=== PATIENT | female | born 1985 | race Caucasian/White ===

== ENCOUNTER 2017-02-07 11:48 | Emergency (ER) | payer BC, OTHER ==
--- NOTE | 2017-02-07 12:13 | EDPHY ---
HPI/HX/ROS/PE/MDM Narrative: CHIEF COMPLAINT: Vomiting, positive home test HPI: The patient is a 31 y/o female complaining of worsening vomiting since , 3 days ago. She took several home tests that were positive. She reports she is vomiting every hour and has difficulty keeping fluids down. She denies associated abdominal pain, fever, or diarrhea. She estimates her last menstrual period was around the beginning of January or end of December. She is otherwise healthy. REVIEW OF SYSTEMS: Aside from elements discussed in the HPI, a comprehensive 10-point review of systems was reviewed and is negative. PMH: SOCIAL HISTORY: Lives in [place]. Employed. In a relationship. PHYSICAL EXAM: General:Patient is alert, in no acute distress. ENT:Eyes are normal to inspection. ENT inspection normal. Neck: Normal inspection. Full range of motion. Respiratory:No respiratory distress. Breath sounds normal bilaterally. Cardiovascular: Regular rate and rhythm. Strong peripheral pulses. Normal cap refill. Abdomen:The abdomen is nontender to palpation. There are no peritoneal signs. There are normal bowel sounds. Back: Normal to inspection. No tenderness to palpation. Skin: Normal color. No rash. Warm and dry. Extremities: Normal appearance. Full range of motion. Neuro: Oriented x3. Normal motor function. Normal sensory function. ED Course: This is a healthy 31 y/o female who presents with a 3-day history of persistent vomiting and positive home tests. Her exam is unremarkable and her abdomen is benign. Plan for basic labs including CBC, CHEM, BHCG, and blood typing. 1L IV NS administered. Patient's BHCG is elevated consistent with early . She will be discharged with a script for Diclegis and referral to OBGYN for follow up. She is comfortable with this plan. Return precautions given. MDM: This patient presents with vomiting in the setting of positive test. She has no abdominal pain to suggest OB problem and has not yet been evaluated by an salesman/owner. I see no sign of ectopic, preeclampsia or infection. The patient is comfortable with the plan to follow-up as an outpatient. I do not think emergent imaging is indicated. - Data Points Laboratory Results: Laboratory Results 02/07/17 12:10 02/07/17 12:10 02/07/17 02/07/17 02/07/17 12:24 12:10 12:10 WBC 10.25 10^3/uL H 10^3/uL (3.80-9.50) RBC 4.80 10^6/uL 10^6/uL (4.18-5.33) Hgb 14.2 g/dL g/dL (12.6-16.3) Hct 41.5 % % (38.0-47.0) MCV 86.5 fL fL (81.5-99.8) MCH 29.6 pg pg (27.9-34.1) MCHC 34.2 g/dL g/dL (32.4-36.7) RDW 12.7 % % (11.5-15.2) Plt Count 439 10^3/uL H 10^3/uL (150-400) MPV 9.3 fL fL (8.7-11.7) Neut % (Auto) 65.7 % % (39.3-74.2) Lymph % (Auto) 27.0 % % (15.0-45.0) Gordon % (Auto) 4.6 % % (4.5-13.0) Eos % (Auto) 1.9 % % (0.6-7.6) Baso % (Auto) 0.5 % % (0.3-1.7) Nucleat RBC Rel Count 0.0 % % (0.0-0.2) Absolute Neuts (auto) 6.74 10^3/uL H 10^3/uL (1.70-6.50) Absolute Lymphs (auto) 2.77 10^3/uL 10^3/uL (1.00-3.00) Absolute Monos (auto) 0.47 10^3/uL 10^3/uL (0.30-0.80) Absolute Eos (auto) 0.19 10^3/uL 10^3/uL (0.03-0.40) Absolute Basos (auto) 0.05 10^3/uL 10^3/uL (0.02-0.10) Absolute Nucleated RBC 0.00 10^3/uL 10^3/uL (0-0.01) Immature Gran % 0.3 % % (0.0-1.1) Immature Gran # 0.03 10^3/uL 10^3/uL (0.00-0.10) Sodium 140 mEq/L mEq/L (134-144) Potassium 4.2 mEq/L mEq/L (3.5-5.2) Chloride 105 mEq/L mEq/L (97-110) Carbon Dioxide 20 mEq/l L mEq/l (22-31) Anion Gap 15 mEq/L mEq/L (8-16) BUN 7 mg/dL mg/dL (7-23) Creatinine 0.6 mg/dL mg/dL (0.6-1.0) Estimated GFR > 60 Glucose 95 mg/dL mg/dL (70-100) Calcium 9.9 mg/dL mg/dL (8.5-10.4) Beta HCG, Quant 51663.00 mIU/mL H mIU/mL (0-4.83) Patient ABO/Rh A POSITIVE Medications Given: Discontinued Medications Sodium Chloride (Ns) 1,000 mls @ 0 mls/hr IV ONCE ONE PRN Reason: Wide Open Stop: 02/07/17 12:22 Last Admin: 02/07/17 12:29 Dose: 1,000 mls General Time Seen by Provider: 02/07/17 12:01 Initial Vital Signs: Initial Vital Signs Temperature (C) 36.5 C 02/07/17 11:58 Heart Rate 102 H 02/07/17 11:58 Respiratory Rate 20 02/07/17 11:58 Blood Pressure 144/86 H 02/07/17 11:58 O2 Sat (%) 96 02/07/17 11:58 O2 Delivery Mode Room Air Allergies/Adverse Reactions: bupropion HCl [From Wellbutrin] Allergy (Verified 02/07/17 11:58) medroxyprogesterone acetate [From Depo-Provera] Allergy (Verified 02/07/17 11:58 ) Home Medications: Medication Instructions Recorded Doxylamine/Pyridoxine HCl (B6) 2 each PO DAILY #20 tablet. 02/07/17 [Hadley Aparicio 10-10 mg Tablet] Departure - Departure Disposition: Home, Routine, Self-Care Clinical Impression: Hyperemesis arising during , Condition: Good Instructions: Hyperemesis Gravidarum (ED) Additional Instructions: 1. Take Diclegis as prescribed when needed for nausea and vomiting. 2. Follow up with an OBGYN this week. You've been referred to Dr. Del Castillo. 3. Return to the ED for inability to keep any food or water down or other worsening of condition. Referrals: NONE *PRIMARY CARE P,. [Primary Care Provider] - As per Instructions Christy Del Castillo MD [Medical Doctor] - As per Instructions Prescriptions: Doxylamine/Pyridoxine HCl (B6) [Hadley Aparicio 10-10 mg Tablet] 2 each PO DAILY # 20 tablet. Report Scribed for: Ramiro Salguero Report Scribed by: Judy Redman Date of Report: 02/07/17 Time of Report: 12:13 Physician Review and Approval Statement: Portions of this note were transcribed by an ED scribe. I personally performed the history, physical exam, and medical decision making; and confirm the accuracy of the information in the transcribed note.
[2017-02-07] MEDS ORDERED: NS 1,000 ML IV ONE (12:21)
[2017-02-07 12:26] LABS: % IMMATURE GRANULYOCYTES 0.3 % (0.0-1.1); ABSOLUTE IMMATURE GRANULOCYTES 0.03 10^3/uL (0.00-0.10); ADD DIFF? NO; ADD MORPH? NO; ADD SCAN? NO; ATYPICAL LYMPHOCYTE FLAG 0 (0-99); FRAGMENT RBC FLAG 0 (0-99); HEMATOCRIT 41.5 % (38.0-47.0); HEMOGLOBIN 14.2 g/dL (12.6-16.3); LEFT SHIFT FLG 0 (0-99); LIPEMIA HEMOLYSIS FLAG 90 (0-99); MEAN CELL HEMOGLOBIN 29.6 pg (27.9-34.1); MEAN CELL HEMOGLOBIN CONCENTR. 34.2 g/dL (32.4-36.7); MEAN CELL VOLUME 86.5 fL (81.5-99.8); MEAN PLATELET VOLUME 9.3 fL (8.7-11.7); PLATELET CLUMPS FLAG 10 (0-99); PLATELET COUNT 439 10^3/uL (150-400); RED CELL DISTRIBUTION WIDTH 12.7 % (11.5-15.2)
[2017-02-07 12:46] LABS: ANION GAP 15 mEq/L (8-16); CALCIUM 9.9 mg/dL (8.5-10.4); CARBON DIOXIDE 20 mEq/l (22-31); CHLORIDE 105 mEq/L (97-110); CREATININE 0.6 mg/dL (0.6-1.0); GLOMERULAR FILTRATION RATE > 60; GLUCOSE 95 mg/dL (70-100); POTASSIUM 4.2 mEq/L (3.5-5.2); SODIUM 140 mEq/L (134-144)
[2017-02-07 14:14] VITALS: BP 134/82; PULSE 69; RESP 20; TEMP 98.1; O2SAT 100
== END 2017-02-07 14:13 | disposition home or self-care (01) ==
DX: O21.0 Mild hyperemesis gravidarum (principal); Z3A.01 Less than 8 weeks gestation of pregnancy